=== PATIENT | female | born 1960 | race Caucasian/White ===

== ENCOUNTER 2016-06-22 10:34 | Emergency (ER) | payer MEDICARE, OTHER ==
[~2016-06-22] VITALS: Wt 100.0 kg
[~2016-06-22 10:34] MED LIST: ACET1TAB40 PO; BACITUD TOP; CYCL-319 PO; ESOM20CA PO; IBUP400T22 PO; NAPR-260 PO; PRED20 PO; PROP10TA6 PO; [UNRECOGNIZED DRUG - CODE] PO
[2016-06-22] MEDS ORDERED: D-ME473S18 PO (12:35)
[2016-06-22] MEDS ORDERED: BENZ100C70 PO (12:35)
--- NOTE | 2016-06-22 13:29 | ERD ---
DATE OF SERVICE: 06/22/2016 HISTORY OF PRESENT ILLNESS: The patient is a 56-year-old female complaining of a cough. Patient st ates that she has chest pain with coughing. She has no pain when she takes a deep breath. No hemop tysis. She has had no fevers, no runny nose, no sore throat. She feels that she has a cold. She h as no cardiac chest pain or radiating chest pain down her arm or up her neck, does not feel short of breath. Denies any vomiting. PAST MEDICAL HISTORY: Denies any other medical problems. ALLERGIES: DENIES ALLERGIES TO MEDICATION. PAST SURGICAL HISTORY: Denies. HOSPITALIZATION: Denies. REVIEW OF SYSTEMS: A 12-point review of systems was done. Refer to HPI for positives, all other sy stems negative. PHYSICAL EXAMINATION: VITAL SIGNS: Temperature is 98.8, pulse 100, blood pressure 135/70, respiratory rate 22, O2 saturat ion 98% on room air. Pain intensity 8/10. GENERAL: The patient is well-appearing, well-nourished, no acute distress. HEENT: Atraumatic. Conjunctivae are pink. Pupils equal, round, and reactive to light. There is no s cleral icterus. Tympanic membranes clear bilaterally. Oropharynx clear. No nystagmus or photophobia . NECK: C-spine is soft and supple. There is no meningismus. There is no cervical lymphadenopathy. No JVD. No bruits. No goiter. CHEST: Clear to auscultation bilaterally. There are no rales, wheezes or rhonchi. HEART: Regular rate and rhythm. No murmurs, clicks, rubs or gallops. No S3 or S4. ABDOMEN: Soft, nontender and nondistended. Good bowel sounds. No rebound or guarding. No gross ramy tonitis. No gross organomegaly or masses. No Rosen sign or McBurney point tenderness. NEURO: Alert and oriented. Cranial nerves 2-12 intact. Motor strength in all 4 extremities with 5/5 strength. Sensation grossly intact. Normal speech and gait. Babinski negative. DTR 2+ throughout. SKIN: There is no apparent rash or petechia. The skin is warm and dry. DIAGNOSIS: Cough, likely viral. MEDICAL DECISION MAKING: I have low suspicion for meningitis or sepsis, low suspicion for pneumonia . Patient's breath sounds are within normal limits. Low suspicion for cardiac abnormality. EMERGENCY ROOM COURSE: The patient had an EKG done in the ER which showed normal sinus rhythm with 90 beats per minute, no ST elevations, no T-wave inversions, no QT prolongations, normal axis. Revi ewed and signed off by Dr. Khoury. DISCHARGE: The patient is discharged stable. Patient given prescription for cough medicine and esther d to follow up with primary care within 1 to 2 days for reevaluation. Patient was told if symptoms change or worsen, to return to the ER. All other questions answered at time of discharge. Discharg e summary given at the time of departure. Patient understood and complied with plan. Dictated By: KRISTIN FLANAGAN for SHERRELL GARCIA/EMMIE Conf#: [id number] DID#: [id number]
== END 2016-06-22 12:56 | disposition home or self-care (01) ==
LOC: FTE 10:34
DX: R05 Cough (principal); R07.9 Chest pain, unspecified
CPT/HCPCS: 93005

== ENCOUNTER 2017-07-22 14:21 | Emergency (ER) | END 2017-07-22 19:05 | disposition home or self-care (01) ==

== ENCOUNTER → 2018-01-17 | Outpatient (CLI) | END | disposition home or self-care (01) ==

== ENCOUNTER 2018-09-05 08:50 | Emergency (ER) | payer OTHER, MEDICAID ==
[~2018-09-05] VITALS: Ht 165.1 cm; Wt 118.1 kg
[~2018-09-05 08:50] MED LIST changes: -ACET1TAB40 PO; +APIX5TAB PO; -BACITUD TOP; -CYCL-319 PO; -ESOM20CA PO; +GABA300C16 PO; -IBUP400T22 PO; +METO-429 PO; -NAPR-260 PO; +OLME40TA13 PO; +PRED10TA PO; -PRED20 PO; -PROP10TA6 PO; +TRAM50TA PO; -[UNRECOGNIZED DRUG - CODE] PO
[2018-09-05 09:05] VITALS: BP 131/60; PULSE 90; RESP 16; Ht 165.1 cm; Wt 118.1 kg
[2018-09-05] MEDS ORDERED: KETOROLAC 30 MG INJ IM STA (09:19)
--- NOTE | 2018-09-05 10:35 | ERD ---
ER Documentation Chief Complaint Chief Complaint left arm pain x 1 week HPI History of Present Illness: 58-year-old female coming in today with complaint of left forearm pain that is been present for 1 week, progressive. Patient reports pain as soreness and throbbing. Patient denies injury or trauma. Patient seun es any decreased sensation. Patient denies any other associated symptoms. At home pharmacological/nonpharmacological treatment for symptoms: Denies Denies social concerns; Denies recent foreign travel ROS All systems reviewed and are negative except as per history of present illness. Medications Home Meds Active Scripts Naproxen* (Naprosyn*) 500 Mg Tablet, 500 MG PO BID PRN for PAIN AND/OR INFLAMMATION, #30 TAB Prov:FARHAT WALKER V [facility] 09/05/18 Reported Medications Tramadol Hcl* (Ultram*) 50 Mg Tablet, 50 MG PO Q8 PRN for PAIN, TAB 06/12/18 Prednisone* (Prednisone*) 10 Mg Tab, 30 MG PO DAILY, TAB 06/12/18 Metoprolol Tartrate* (Lopressor*) 50 Mg Tab, 50 MG PO BID, #60 TAB 06/12/18 Olmesartan Medoxomil (Benicar) 40 Mg Tablet, 40 MG PO DAILY, #30 TAB 06/12/18 Gabapentin* (Gabapentin*) 300 Mg Capsule, 300 MG PO BID, #60 CAP 06/12/18 Apixaban* (Eliquis*) 5 Mg Tablet, 5 MG PO BID, TAB 06/12/18 Allergies Allergies: Coded Allergies: acetaminophen (Verified Allergy, Unknown, RASH, 06/12/18) hydrocodone (Verified Allergy, Unknown, RASH, 06/12/18) Uncoded Allergies: ANESTHESIA (Allergy, Unknown, RASH, 10/13/14) PMhx/Soc Medical and Surgical Hx: pt denies Surgical Hx History of Surgery: No Anesthesia Reaction: Yes Hx Neurological Disorder: No Hx Respiratory Disorders: No Hx Cardiac Disorders: Yes (STROKE,HTN) Hx Psychiatric Problems: No Hx Miscellaneous Medical Probl: Yes (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 Neck: Full range of motion. No meningismus. Resp: Clear to auscultation bilaterally Cardio: Regular rate and rhythm, no murmurs Abd: Soft, non tender, non distended. Normal bowel sounds Skin: No petechiae or rashes Back: No midline or flank tenderness Ext: No cyanosis; tenderness to palpation along left forearm, positive swelling, neurovascularly intact distally. Neur: Awake and alert Psych: Normal Mood and Affect Results 24 hrs Current Medications Medications Dose Sig/Rosa Elena Start Time Status Last (Trade) Ordered Route PRN Stop Time Admin Dose Reason Admin Ketorolac 30 mg ONCE STAT 09/05/18 DC 09/05/18 Tromethamine IM 09:19 09/05/18 09:39 (Toradol) 09:23 Procedures/MDM ED course includes a thorough examination and history. Medications: Ketorolac Imaging: X-ray of left forearm Labs: -- ED course: Left forearm x-ray showing possible step-off at radial head, will order elbow x-ray to confirm findings. Low suspicion for life-threatening medical emergency. Low suspicion for infectious process or orthopedic process that requires hospitalization or immediate surgical intervention. patient presenting with constellation of symptoms likely representing uncomplicated osteoarthritis as characterized by history, physical exam findings, lab findings. Elbow x-ray showing: IMPRESSION: 1. Mild degenerative arthrosis seen about the elbow joint. 2. Otherwise, unremarkable left elbow series. Rafita Roa Physician Patient reassessment : Patient with decrease in pain. Disposition given. No respiratory distress, otherwise relatively well appearing and nontoxic. Patient educated on diagnoses, prescriptions, follow-up care, return precautions. Strict return precautions given for worsening condition; questions answered martine martinez. Disposition for discharge with followup in 2 days with PCP/clinic. 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
[2018-09-05] MEDS ORDERED: NAPR-985 PO (11:15)
== END 2018-09-05 11:42 | disposition home or self-care (01) ==
LOC: FTE 08:50
DX: M19.022 Primary osteoarthritis, left elbow (principal); I10 Essential (primary) hypertension; Z79.01 Long term (current) use of anticoagulants
CPT/HCPCS: 73080; 73090; 96372; 99284; J1885

== ENCOUNTER → 2018-10-10 | Outpatient (CLI) | payer MEDICARE ==
[~2018-10-10] MED LIST changes: +NAPR-985 PO
== END | disposition home or self-care (01) ==
LOC: NUC 09:54
PROVIDERS: ATTEND Internal Medicine
DX: M35.8 Other specified systemic involvement of connective tissue (principal); E04.2 Nontoxic multinodular goiter
CPT/HCPCS: 78014; A9516

== ENCOUNTER 2018-11-03 20:18 | Observation (INO) | payer MEDICARE, OTHER ==
[~2018-11-03] VITALS: Ht 160 cm; Wt 116.8 kg
[2018-11-03] MEDS ORDERED: ONDANSETRON 4 MG INJ IV STA (21:30)
[2018-11-03] MEDS ORDERED: morphine 4 MG/ML VIAL IV STA (21:30)
[2018-11-03] MEDS ORDERED: SOD CHLORIDE 0.9% 500 ML IV STA (21:30)
[2018-11-03] MEDS ORDERED: ONDANSETRON 4 MG INJ IV PRN (23:30)
[2018-11-04] VITALS (8 sets, daily range): BP systolic 115–125; BP diastolic 56–78; PULSE 74–97; RESP 18–20; Ht 160 cm; Wt 116.8 kg
[2018-11-04] MEDS ORDERED: VALS40TA10 PO (01:03)
[2018-11-04] MEDS ORDERED: MECL-77 PO (01:03)
[2018-11-04] MEDS ORDERED: ERGO500013 PO (01:03)
[2018-11-04] MEDS ORDERED: LORA0.5T PO (01:03)
[2018-11-04] MEDS ORDERED: LORAZEPAM 0.5 MG TAB PO PRN (01:30)
--- NOTE | 2018-11-04 02:36 | ERD ---
ER Documentation Chief Complaint Chief Complaint Pt reports MEDINA and R arm pain started at 5pm HPI 58-year-old female with a history of a stroke with chronic headaches presenting with worsening of her headache within the past few days, especially worse after 5 PM today. She denies any associated new focal neurologic complaints, however she did have some vomiting today which she has not had before. She complains of dizziness but this has been intermittent since her stroke. She also complains of new onset right upper and right lower extremity severe pain that she describes as severely aching, "deep". 10 out of 10, with no alleviating factors. Worsened by movement and touch. No associated neck pain or weakness. Denies any recent trauma. ROS All systems reviewed and are negative except as per history of present illness. Medications Home Meds Active Scripts Naproxen* (Naprosyn*) 500 Mg Tablet, 500 MG PO BID PRN for PAIN AND/OR INFLAMMATION, #30 TAB Prov:FARHAT WALKER NP 09/05/18 Reported Medications Valsartan (Valsartan) 40 Mg Tablet, 40 MG PO DAILY for 90 Days 11/04/18 Ergocalciferol (Vitamin D2) (VITAMIN D2) 50,000 Unit Capsule, 62423 UNITS PO Q7D for QTHURSDAY TK 1 C PO Q WEEK 11/04/18 Lorazepam* (Lorazepam*) 0.5 Mg Tablet, 0.5 MG PO DAILY PRN for ANXIETY for 30 Days 11/04/18 Meclizine Hcl* (Meclizine Hcl*) 25 Mg Tablet, 12.5 MG PO TID TK 1/ T PO TID 11/04/18 Prednisone* (Prednisone*) 10 Mg Tab, 30 MG PO DAILY, TAB 06/12/18 Metoprolol Tartrate* (Lopressor*) 50 Mg Tab, 50 MG PO BID, #60 TAB 06/12/18 Olmesartan Medoxomil (Benicar) 40 Mg Tablet, 40 MG PO DAILY, #30 TAB 06/12/18 Gabapentin* (Gabapentin*) 300 Mg Capsule, 300 MG PO BID, #60 CAP 06/12/18 Apixaban* (Eliquis*) 5 Mg Tablet, 5 MG PO BID, TAB 06/12/18 Discontinued Reported Medications Tramadol Hcl* (Ultram*) 50 Mg Tablet, 50 MG PO Q8 PRN for PAIN, TAB 06/12/18 Allergies Allergies: Coded Allergies: acetaminophen (Unverified Allergy, Unknown, RASH, 11/04/18) hydrocodone (Unverified Allergy, Unknown, RASH, 11/04/18) tramadol (Unverified Allergy, Unknown, itching, 11/04/18) Uncoded Allergies: ANESTHESIA (Allergy, Unknown, RASH, 10/13/14) PMhx/Soc History of Surgery: No Anesthesia Reaction: Yes Hx Neurological Disorder: No Hx Respiratory Disorders: No Hx Cardiac Disorders: Yes (STROKE,HTN) Hx Psychiatric Problems: No Hx Miscellaneous Medical Probl: Yes (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 Neck: Full range of motion. No meningismus. Resp: Clear to auscultation bilaterally Cardio: Regular rate and rhythm, no murmurs Abd: Soft, non tender, non distended. Normal bowel sounds Skin: No petechiae or rashes Back: No midline or flank tenderness Ext: No cyanosis, or edema. Diffuse tenderness of the right upper extremity down to the fingers with no deformities noted. No joint swelling. Full range of motion at all joints. Neur: Awake and alert, oriented, dysarthric but no expressive aphasia. Cranial nerves grossly intact. Strength and sensations grossly intact. Psych: Normal Mood and Affect Result Diagram: 11/03/18213611/03/182137 Results 24 hrs Laboratory Tests Test 11/03/18 21:37 11/03/18 21:38 White Blood Count 11.3 10^3/ul Red Blood Count 4.38 10^6/ul Hemoglobin 12.6 g/dl Hematocrit 37.3 % Mean Corpuscular Volume 85.2 fl Mean Corpuscular Hemoglobin 28.8 pg Mean Corpuscular Hemoglobin Concent 33.8 g/dl Red Cell Distribution Width 13.2 % Platelet Count 277 10^3/UL Mean Platelet Volume 11.2 fl Immature Granulocytes % 0.400 % Neutrophils % 49.9 % Lymphocytes % 39.3 % Monocytes % 7.3 % Eosinophils % 2.7 % Basophils % 0.4 % Nucleated Red Blood Cells % 0.0 /100WBC Immature Granulocytes # 0.050 10^3/ul Neutrophils # 5.7 10^3/ul Lymphocytes # 4.4 10^3/ul Monocytes # 0.8 10^3/ul Eosinophils # 0.3 10^3/ul Basophils # 0.1 10^3/ul Nucleated Red Blood Cells # 0.0 10^3/ul Erythrocyte Sedimentation Rate 35 mm/Hr Sodium Level 140 mmol/L Potassium Level 3.5 mmol/L Chloride Level 106 mmol/L Carbon Dioxide Level 27 mmol/L Anion Gap 7 Blood Urea Nitrogen 18 mg/dl Creatinine 0.78 mg/dl Est Glomerular Filtrat Rate mL/min > 60 mL/min Glucose Level 127 mg/dl Calcium Level 8.4 mg/dl Current Medications Medications Dose Sig/Rosa Elena Start Time Status Last (Trade) Ordered Route PRN Stop Time Admin Dose Reason Admin Sodium 500 ml @ Q1H STAT 11/03/18 DC 11/03/18 Chloride 500 mls/hr IV 21:30 11/03/18 21:44 22:29 Ondansetron 4 mg ONCE STAT 11/03/18 DC 11/03/18 HCl (Zofran IV 21:30 11/03/18 21:44 Inj) 21:31 Morphine 4 mg ONCE STAT 11/03/18 DC 11/03/18 Sulfate IV 21:30 11/03/18 21:45 (morphine) 21:31 Ondansetron 4 mg ER BRIDGE 11/03/18 HCl (Zofran PRN IV 23:30 11/04/18 Inj) NAUSEA/VOMITI 23:29 NG Procedures/MDM EMERGENT LABS AND DIAGNOSTIC STUDIES: Lab Results above were reviewed and interpreted by me. CBC: no anemia or evidence of infection BMP: [no e/o clinically significant electrolyte abnormality severe acidosis, alkalosis, renal failure, diabetic ketoacidosis] Radiology Results as interpreted by Radiology below were reviewed by Mcihel Lynn MD: CT head shows no acute abnormalities Initial Nursing notes reviewed. Previous Medical Records requested via the Electronic Health Record. EMERGENCY DEPARTMENT COURSE / MEDICAL DECISION MAKING: Patient is presenting with progressively worsening throbbing posterior headache with associated dizziness and right-sided arm and leg pain. Patient does not have any new focal neurologic deficits on exam. However given the worsening of her headache from baseline, CT head was ordered to evaluate for possible intracranial hemorrhage which was negative. However patient did not pass her swallow evaluation per the bedside nurse. Normally the patient is able to tolerate food and fluids by mouth. This is an acute neurologic change for her from what I could ascertain from family. The cause of her headache is unclear at this time. I doubt subarachnoid hemorrhage. However I do believe the patient will need an MRI to rule out any other significant abnormalities that are not seen on CT scan. With regard to her right-sided pain, I believe this is neuropathic pain from how the patient describes it. She was treated for pain in the ER. Further work-up and management will be deferred to the inpatient team. Accepting Care Team: Current data and ongoing care discussed. Time: Time of admission Primary Provider: Dr. Cleveland Consulting: None Outstanding Data: none Departure Diagnosis: Primary Impression: Occipital headache Additional Impressions: Pain of right upper extremity Dizziness Difficulty swallowing Dysphagia type: unspecified Qualified Codes: R13.10 - Dysphagia, unspecified Condition: IDALIA Garcia MD Nov 04, 2018 02:36
[2018-11-04] MEDS: morphine 2 MG INJ IV PRN ×3 (06:03→19:56)
[2018-11-04] MEDS ORDERED: NON-FORMULARY/PATIENT OWN MED (Olmesartan Medoxomil (Benicar) 40 MG) XX SCH (09:00)
[2018-11-04] MEDS: APIXABAN 5 MG TABLET PO SCH ×2 (09:00→20:04)
[2018-11-04] MEDS: predniSONE 10 MG TAB PO SCH (09:00)
[2018-11-04] MEDS: MECLIZINE 25 MG TAB PO SCH ×3 (09:00→20:03)
[2018-11-04] MEDS ORDERED: VALSARTAN 40 MG PO SCH (09:00)
[2018-11-04] MEDS: GABAPENTIN 300 MG CAP PO SCH ×2 (09:00→20:04)
[2018-11-04] MEDS: METOPROLOL 50 MG TAB PO SCH ×2 (09:00→20:04)
--- NOTE | 2018-11-04 10:51 | PDOCDIS ---
Discharge Instructions CONDITION [id number] Patient Condition: [id number] Good HOME CARE INSTRUCTIONS: [id number] Diet Instructions: [id number] FOLLOW UP/APPOINTMENTS Follow-up Plan pcp 1 week MT RAI MD Nov 04, 2018 10:51
--- NOTE | 2018-11-04 11:14 | HP ---
DATE OF ADMISSION: 11/03/2018 CHIEF COMPLAINT: Severe headache and right arm pain. HISTORY OF PRESENT ILLNESS: A 58-year-old female with a history of old cerebrovascular acci dent and residual dysphagia, presented to emergency room with complaint of severe posterior headache. The patient has had chronic headaches for several months. She also reported the right arm pain and discomfort. There was no focal weakness or numbness. However, initial evaluation in the emergency room revealed evidence of a new onset dysphagia. CAT scan of the brain was unremarkable. At the akhil e of my visit, the patient reported significant improvement in her headache and right-sided pain was resolved. PAST MEDICAL HISTORY: 1. 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 2. Hypertension. MEDICATIONS PRIOR TO ADMISSION: Include: 1. Naprosyn. 2. Valsartan 3. Lorazepam. 4. Meclizine. 5. Prednisone. 6. Lopressor. 7. Benicar. 8. Gabapentin. 9. Eliquis. ALLERGIES: THE PATIENT IS ALLERGIC TO: 1. TYLENOL. 2. HYDROCODONE. 3. TRAMADOL. SOCIAL HISTORY: The patient lives at home. The was at the bedside at the time of my visit. She denies tobacco or alcohol use. PHYSICAL EXAMINATION: GENERAL: Well-developed, well-nourished female who is in no apparent distress. VITAL SIGNS: Stable. She is afebrile. HEENT: Extraocular muscles intact. Pupils are equal and reactive to light bilaterally. Sclerae are anicteric. Oropharynx is clear and moist. NECK: Supple, no JVD, no carotid bruit. CHEST: Clear to auscultation bilaterally. CARDIAC: Regular rate and rhythm. No murmurs, rubs or gallops. ABDOMEN: Soft, nontender, nondistended, normoactive bowel sounds. EXTREMITIES: No clubbing, cyanosis, or edema. NEUROLOGIC: Patient is alert and oriented x3. She has chronic dysarthria and expressive dysarthria, but there is no evidence of expressive aphasia. Motor and sensory are intact in all extremities. COORDINATION: Fairly normal. LABORATORY DATA: White blood cell count 11.3, hemoglobin 12.6, platelet count 277,000. BMP was with in normal limits. ASSESSMENT: 1. A 58-year-old female presenting with a posterior headache which is now resolved. 2. New onset dysphagia. 3. 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 4. Hypertension, well controlled. PLAN: 1. Place in telemetry observation, proceed with MRI of brain. 2. Speech therapy. Discharge planning if the brain MRI is normal. Dictated By: MT VOGEL/EMMIE Conf#: [id number] DID#: [id number]
[2018-11-04] MEDS ORDERED: ENOXAPARIN 30 MG/0.3 ML SYG SC SCH (21:00)
[2018-11-04] MEDS: ENOXAPARIN 80 MG/0.8 ML SYG SC SCH (22:07)
[2018-11-05] MEDS: morphine 2 MG INJ IV PRN ×2 (00:01→06:37)
[2018-11-05 03:31] VITALS: BP 127/73; PULSE 89; RESP 21
[2018-11-05 07:50] VITALS: BP 160/83; PULSE 79; RESP 19
[2018-11-05] MEDS: MECLIZINE 25 MG TAB PO SCH ×2 (08:09→12:27)
[2018-11-05] MEDS: METOPROLOL 50 MG TAB PO SCH (08:09)
[2018-11-05] MEDS: ENOXAPARIN 80 MG/0.8 ML SYG SC SCH (08:13)
[2018-11-05] MEDS: GABAPENTIN 300 MG CAP PO SCH (08:22)
[2018-11-05] MEDS: predniSONE 10 MG TAB PO SCH (08:22)
[2018-11-05] MEDS ORDERED: SUMA50TA2 PO (09:46)
[2018-11-05] MEDS ORDERED: SUMATRIPTAN 25 MG TAB PO ONE (10:30)
--- NOTE | 2018-11-05 10:33 | DS ---
DATE OF ADMISSION: 11/03/2018 DATE OF DISCHARGE: 11/05/2018 DISCHARGE DIAGNOSES: 1. Chronic posterior headaches. 2. 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 3. New onset dysphagia. 4. Hypertension. PROCEDURES DURING HOSPITALIZATION: CAT scan of the brain and MRI of brain. HOSPITAL COURSE: A 58-year-old female with history of old cerebrovascular accident in 03/22 18 with residual dysarthria, presented to Emergency Room with complaint of severe posterior headaches . The patient has had headaches for several months. SHE IS ALLERGIC TO MULTIPLE ANALGESIC AGENTS IN [place] TYLENOL, HYDROCODONE, TRAMADOL AND TORADOL. Initially she was found to have dysphagia. The patient underwent imaging of brain MRI following admission. There was no evidence of acute intracran ial abnormality. The patient was evaluated by a speech therapist the following day. Pureed diet was recommended. I started her on Imitrex hoping to improve her headaches. The patient is in stable co ndition for discharge. MEDICATIONS ON DISCHARGE: 1. Imitrex 50 mg b.i.d. as needed. 2. Eliquis 5 mg b.i.d. 3. Vitamin D. 4. Gabapentin 300 mg b.i.d. 5. Lorazepam as needed. 6. Metoprolol 50 mg b.i.d. 7. Benicar 40 mg daily. 8. Valsartan 40 mg daily. Patient no longer takes meclizine, Naprosyn or prednisone. Follow up with PCP in 1 week. The patient will be referred to neurology for further evaluation as outpatient. Dictated By: MT VOGEL/EMMIE Conf#: [id number] DID#: [id number]
[2018-11-05 11:25] VITALS: BP 139/81; PULSE 68; RESP 18
== END 2018-11-05 12:42 | disposition home or self-care (01) ==
LOC: E/R 20:18 → TEL 23:30
PROVIDERS: ADMIT Internal Medicine; ATTEND Internal Medicine
DX: R51 Headache (principal); I69.322 Dysarthria following cerebral infarction; I10 Essential (primary) hypertension; R13.10 Dysphagia, unspecified
CPT/HCPCS: 36415; 70450; 70551; 80048; 85025; 85651; 92610; 96374; 96375; 99285; G0378; J1650; J2270; J2405; J7040; J7512